=== PATIENT | male | born 1990 ===

== ENCOUNTER → 2022-05-25 | Outpatient (CLI) | payer SELFPAY ==
[2022-05-26 09:10] LABS: HIV AB/P24 AG SCREEN Non Reactive (Non Reactive)
== END | disposition home or self-care (01) ==
LOC: LAB SHORT 14:15
PROVIDERS: Internal Medicine
DX: Z77.21 Contact with and (suspected) exposure to potentially hazardous body fluids (principal)
CPT/HCPCS: 86708; 86803; 87389